=== PATIENT | male | born 1950 ===

== ENCOUNTER → 2018-08-08 18:05 | Outpatient (REF) | payer OTHER, SELFPAY ==
[2018-08-08 20:12] LABS: Add Manual Diff / Slide Review NO; Basophils Absolute Auto 0 /uL (0-100); Basophils Percent Auto 0.5 % (0-2); Carbon Dioxide 29 mmol/L (22-32); Chloride 97 mmol/L (98-107); Eosinophils Absolute Auto 200 /uL (0-450); Eosinophils Percent Auto 4.1 % (2-4); HEMOLYSIS < 15 (0-50); Hematocrit 43.3 % (41-53); Hemoglobin 14.2 g/dL (13.5-17.5); Lymphocytes Absolute Auto 1100 /uL (1100-4500); Lymphocytes Percent Auto 23.1 % (25-40); Mean Corpuscular HGB Conc 32.8 % (30-36); Mean Corpuscular Volume 94.6 fL (80-100); Monocytes Absolute Auto 400 /uL (0-900); Monocytes Percent Auto 8.9 % (3-14); Neutrophils Absolute Auto 3100 /uL (1500-7000); Neutrophils Percent Auto 63.4 % (50-75); Platelet Count 293 X10^3/uL (150-400); Potassium 4.5 mmol/L (3.4-5.1); Red Blood Cell Count 4.57 X10^6/uL (4.5-5.9); Red Cell Distribution Width 14.2 % (11.6-14.8); Sodium 134 mmol/L (137-145)
== END ==
LOC: LAB 18:05
PROVIDERS: Visit Provider Family Medicine Geriatric Medicine
DX: Z01.812 Encounter for preprocedural laboratory examination (principal); R73.9 Hyperglycemia, unspecified; M17.10 Unilateral primary osteoarthritis, unspecified knee
CPT/HCPCS: 36415; 80051; 83036; 85025